=== PATIENT | female | born 1990 | race Caucasian/White ===

== ENCOUNTER 2020-04-29 01:07 | Inpatient (IN) | payer BC ==
[2020-04-29] MEDS ORDERED: Methylergonovine 0.2 MG/ML VIAL IM PRN (01:30)
[2020-04-29] MEDS ORDERED: Misoprostol 200 MCG TAB VAG PRN (01:30)
[2020-04-29] MEDS ORDERED: hydrALAZINE 20 MG/ML VIAL SLOW IVP PRN ×2 (01:30)
[2020-04-29] MEDS ORDERED: Adacel (T-DAP) 0.5 ML SYRINGE IM ONE (01:30)
[2020-04-29] MEDS ORDERED: Promethazine HCl 25 MG/ML VIAL IM PRN (01:30)
[2020-04-29] MEDS ORDERED: Measles/Mumps/Rubella 10 MCG/0.5 ML VIAL SC ONE (01:30)
[2020-04-29] MEDS ORDERED: Milk Of Magnesia 30 ML UDCUP PO PRN (01:30)
[2020-04-29] MEDS ORDERED: Ondansetron PF 4 MG/2 ML Vial IVP PRN (01:30)
[2020-04-29] MEDS ORDERED: Bisacodyl 10 MG SUPP PR PRN (01:30)
[2020-04-29] MEDS ORDERED: HYDROcodone/Acetaminophen 5/325 mg Tablet PO PRN ×2 (01:30)
[2020-04-29 01:38] VITALS: TEMP 98.3; BMI 25.7
--- NOTE | 2020-04-29 01:57 | HP ---
CHIEF COMPLAINT: Status post delivery en route to the hospital. HISTORY OF PRESENT ILLNESS: Ms. Coleman is a 29-year-old white G4, P2 with an estimated date of confinement of 08/21/2020, who presents to Labor and Delivery after having delivered while en route in ambulance. She has also had spontaneous delivery of the placenta. Her care has been with Dr. Silva at [facility], and she reports that it had been uncomplicated. She does state that she was seen in Labor and Delivery earlier today at [facility], was evaluated, and sent home. PAST OBSTETRICAL HISTORY: Includes 2 previous term vaginal deliveries and a 16-week loss. PAST MEDICAL HISTORY: Hypothyroidism. PAST SURGICAL HISTORY: Total thyroidectomy. CURRENT MEDICATIONS: 1. vitamins. 2. Levothyroxine 112 mcg daily. ALLERGIES: AMOXICILLIN. SOCIAL HISTORY: Denies tobacco, alcohol, or drug use. FAMILY HISTORY: Unremarkable. REVIEW OF SYSTEMS: Denies nausea, vomiting, fever, or chills. PHYSICAL EXAMINATION: VITAL SIGNS: Blood pressure in Labor and Delivery is 115/64, pulse is 94. GENERAL: She is in no acute distress. CHEST: Clear to auscultation. CARDIOVASCULAR: Regular rate and rhythm. ABDOMEN: Soft and nontender. PELVIC: Examination shows no vaginal bleeding and no lacerations. Her baby is currently admitted to the NICU and weighs approximately 500 g. The placenta is reviewed and appears intact. ASSESSMENT: Status post extramural delivery of at 23 and 5/7th weeks with spontaneous delivery of the placenta. PLAN: The patient will be admitted. Admitting labs will be drawn. As she is not actively bleeding, no IV is placed. She will be admitted for routine care. Job ID: [id number]
[2020-04-29 02:31] LABS: Hemoglobin 11.8 g/dL (12.0-16.0); Mean Corpuscular HGB CONC 34.9 g/dL (32.0-36.0); Mean Corpuscular Hemoglobin 31.6 pg (27.0-31.0); Mean Corpuscular Volume 90.4 fL (78.0-98.0); Mean Platelet Volume 7.6 fL (7.4-10.4); Platelet Count 296 thou/uL (130-400); RBC Distribution Width 11.5 % (11.5-14.5); Red Blood Cell (RBC) Count 3.75 mill/uL (4.20-5.40); White Blood Cell (WBC) Count 22.5 thou/uL (4.8-10.8)
[2020-04-29 02:46] LABS: Amphetamine Not Detected (NotDetected); Barbiturates Screen Not Detected (NotDetected); Benzodiazepine Screen Not Detected (NotDetected); Cocaine Metabolite Screen Not Detected (NotDetected); Medtox Control Line Valid? VALID (VALID); Medtox Reader # READER 1; Methadone Not Detected (NotDetected); Methamphetamine Not Detected (NotDetected); Opiate Screen Not Detected (NotDetected); Oxycodone Screen Not Detected (NotDetected); Phencyclidine (PCP) Not Detected (NotDetected); THC/Cannabinoid Screen Not Detected (NotDetected); Tricyclic Screen Not Detected (NotDetected)
[2020-04-29 02:52] VITALS: BP 111/65
[2020-04-29 03:07] LABS: HBSAg Index 0.12 S/CO (0-0.99); Hep B Surf Ag Non-Reactive S/CO (NonReactive)
[2020-04-29 04:14] LABS: SARS-CoV-2 NAA Rapid Test Not Detected (NotDetected)
[2020-04-29 04:14] LABS: Syphilis Antibody Nonreactive (Nonreactive); Syphilis Antibody Index 0.05 S/CO (<1.00 Non-Reactive)
[2020-04-29] MEDS ORDERED: Levothyroxine Sodium 112 MCG TAB PO SCH (06:00)
[2020-04-29] MEDS ORDERED: Ibuprofen 800 MG TAB PO SCH (06:00)
--- NOTE | 2020-04-29 06:22 | PDOC.EVN ---
Event Note - Event Note Event Note: Baby transferred to [facility]. Pt. wants to go there. VSS AF Lochia small. Labs on admit WNL, RH+, COVID negative. Plan: DC per request. Precautions, RTC 6 weeks at [facility].
[2020-04-29] MEDS ORDERED: Ferrous Sulfate 325 MG TAB PO SCH (08:00)
[2020-04-29] MEDS ORDERED: Docusate Calcium (SURFAK) 240 MG CAP PO SCH (09:00)
[2020-04-29] MEDS ORDERED: Prenatal Vitamin 1 TAB PO SCH (09:00)
== END 2020-04-29 09:11 | disposition home or self-care (01) | DRG 776 ==
LOC: L&D/OP 01:07 → L&D 01:32
PROVIDERS: ADMIT Obstetrics & Gynecology; ATTEND Obstetrics & Gynecology
DX: O99.285 Endocrine, nutritional and metabolic diseases complicating the puerperium (principal); E89.0 Postprocedural hypothyroidism; Z20.828 Contact with and (suspected) exposure to other viral communicable diseases; Z3A.39 39 weeks gestation of pregnancy; Z88.1 Allergy status to other antibiotic agents; Z79.890 Hormone replacement therapy
CPT/HCPCS: 36415; 80306; 85027; 86780; 86850; 86900; 86901; 87340; 99285; U0002